=== PATIENT | female | born 1950 | race Caucasian/White ===

== ENCOUNTER 2016-06-23 18:19 | Emergency (ER) | payer MEDICARE ==
[~2016-06-23 18:19] MED LIST: BYSTOLIC10 MG PO; CARAFATE1 G; DILANTIN; HYDROCHLOROTH12.5 M1 PO; KEFLEX500 M1; KEPPRA750 M1; METOPROLOL SUC100 MG; NASONEX17 GM; NO MEDICATIONS; PREVACID PO; RANITIDINE HCL150 M1; VITAMIN D50000 UNIT PO
== END 2016-06-23 19:56 | disposition home or self-care (01) ==
LOC: SED 18:19
DX: S01.01XA Laceration without foreign body of scalp, initial encounter (principal); R56.9 Unspecified convulsions; I63.9 Cerebral infarction, unspecified; K21.9 Gastro-esophageal reflux disease without esophagitis; I10 Essential (primary) hypertension; Z88.1 Allergy status to other antibiotic agents; Z88.8 Allergy status to other drugs, medicaments and biological substances; Z88.6 Allergy status to analgesic agent; W18.2XXA Fall in (into) shower or empty bathtub, initial encounter; Y92.009 Unspecified place in unspecified non-institutional (private) residence as the place of occurrence of the external cause
CPT/HCPCS: 12001; 99283

== ENCOUNTER → 2016-07-03 | Outpatient (CLI) | payer MEDICARE ==
--- NOTE | ~2016-07-03 | CT71 ---
[facility] A Service of [facility] RADIOLOGY TEXT RESULTS PATIENT: TRACE SLAUGHTER LOCATION: [facility] : 50 UNIT #: [id number] AGE: [address]: John Blas MD SEX: F ORDER DR: [id number] [place] [id number] O MR#: [id number] Acc #: [id number] NAME: TRACE SLAUGHTER. : 1950 SEX: F STUDY DATE/TIME: 07/03/2016 14:03 UNIT: [facility] ROOM: STUDY DESCRIPTION: CT Head Wo Contrast Attending Physician: John Blas M.D. Referring Physician: John Blas M.D. Ordering Physician: John Blas M.D. Primary Care Physician: John Blas M.D. MEDICAL IMAGING REPORT This report is preliminary unless electronic signature is present. EXAM Head CT without contrast, date of study is 07/03/2016 PROCEDURE Axial unenhanced head CT. COMPARISON Brain MRI dated 09/13/2009 CLINICAL HISTORY Seizure disorder and weakness. Recent fall 10 days ago weakness since then. TECHNIQUE This CT exam was performed with one or more of the following radiation dose reduction techniques: automatic control, adjustment of mA and/or kV according to patient size, and iterative reconstruction. FINDINGS There has been previous left frontal craniotomy. There is no intracranial hemorrhage or mass or evidence of acute infarct, but there is left superior frontal encephalomalacia. Brain parenchymal density is otherwise normal. IMPRESSION Left superior frontal encephalomalacia, prior frontal craniotomy. No acute intracranial abnormality. Dictated by... Mark Contreras M.D. THIS IS AN ELECTRONICALLY VERIFIED REPORT [facility] A Service [facility] RADIOLOGY TEXT RESULTS PATIENT: TRACE SLAUGHTER LOCATION: [facility] : 50 UNIT #: [id number] AGE: [address]: John Blas MD SEX: F ORDER DR: Mark Contreras M.D. at 07/04/2016 12:46 PM TEV/gaby TD: 07/04/2016 00:32 JOB #: [id number] MEDICAL IMAGING REPORT
== END | disposition home or self-care (01) ==
LOC: SCT 13:52
DX: G40.909 Epilepsy, unspecified, not intractable, without status epilepticus (principal); R53.1 Weakness; G93.89 Other specified disorders of brain; Z98.890 Other specified postprocedural states
CPT/HCPCS: 70450

== ENCOUNTER 2016-07-17 14:11 | Emergency (ER) | payer MEDICARE ==
--- NOTE | ~2016-07-17 | CT71 ---
[facility] A Service [facility] RADIOLOGY TEXT RESULTS PATIENT: TRACE SLAUGHTER LOCATION: SED : 50 UNIT #: [id number] AGE: [address]: Edis Holguin MD SEX: F ORDER DR: [id number] [address] [address] [id number] E MR#: [id number] Acc #: [id number] NAME: TRACE SLAUGHTER : 1950 SEX: F STUDY DATE/TIME: 07/17/2016 13:56 UNIT: SED ROOM: STUDY DESCRIPTION: CT Head Wo Contrast Attending Physician: Edis Holguin M.D. Ordering Physician: Edis Holguin M.D. Primary Care Physician: John Blas M.D. MEDICAL IMAGING REPORT This report is preliminary unless electronic signature is present. EXAM Head CT without contrast HISTORY Head injury. Previous history of stroke. Last fall occurred 5 days ago. TECHNIQUE This CT exam was performed with one or more of the following radiation dose reduction techniques: automatic exposure control, adjustment of mA and/or kV according to patient size, and iterative reconstruction. Axial images were obtained without contrast and compared with 07/03/2016 FINDINGS Atrophy with left frontal encephalomalacia is again seen. There is no evidence of mass lesion, hemorrhage or edema. No midline shift is seen. Extraaxial structures are unremarkable. IMPRESSION Chronic left frontal infarct. Atrophy. No acute findings Dictated by... Richard Hernandez M.D. THIS IS AN ELECTRONICALLY VERIFIED REPORT Richard Hernandez M.D. at 07/21/2016 10:12 AM ADAN/thanh TD: 07/17/2016 21:04 JOB #: [id number] [facility] A [facility] RADIOLOGY TEXT RESULTS PATIENT: TRACE SLAUGHTER LOCATION: SED : 50 UNIT #: [id number] AGE: [address]: Edis Holguin MD SEX: F ORDER DR: MEDICAL IMAGING REPORT Page 1 of 1
--- NOTE | ~2016-07-17 | CT52 ---
[facility] A Service of [facility] RADIOLOGY TEXT RESULTS PATIENT: TRACE SLAUGHTER LOCATION: SED : 50 UNIT #: [id number] AGE: [address]: Edis Holguin MD SEX: F ORDER DR: [id number] [address] [address] [id number] E MR#: [id number] Acc #: [id number] NAME: TRACE SLAUGHTER : 1950 SEX: F STUDY DATE/TIME: 07/17/2016 14:26 UNIT: SED ROOM: STUDY DESCRIPTION: CT Cervical Spine Wo Cont Attending Physician: Edis Holguin M.D. Ordering Physician: Edis Holguin M.D. Primary Care Physician: John Blas M.D. MEDICAL IMAGING REPORT This report is preliminary unless electronic signature is present. EXAM CT cervical spine, 07/17/2016. HISTORY Fell and hit head. Complains of pain. Multiple falls. History of stroke, dysphasia. No memory loss. TECHNIQUE CT cervical spine performed. Bone and soft tissue windows reviewed. Sagittal and coronal reconstructions performed. This CT exam was performed with one or more of the following radiation dose reduction techniques: automatic exposure control, adjustment of mA and/or kV according to patient size, and iterative reconstruction. COMPARISON No prior CTs, cervical spine, for comparison. FINDINGS Visualized brain normal. Visualized paranasal sinuses and mastoid air cells clear. Nasopharyngeal, oropharyngeal regions notable only for right palatine tonsil tonsilolith. Pharyngeal mucosal, retroperitoneal spaces, larynx, subglottic airway, superior mediastinum, lung apices, thyroid, visualized submandibular and parotid glands unremarkable. There are small cervical lymph nodes. There is no indication of pathologic adenopathy. No traumatic-appearing abnormality in the paraspinal soft tissues. Straightening of the normal cervical lordosis. Vertebral body heights and facet joint relationships are normal. Diffuse moderate to marked narrowing of the cervical spine intervertebral disc spaces. No fracture. C2-C3: No significant disc bulge or herniation. Spinal canal diameter within normal limits. Neural foramina patent without evidence of exiting nerve impingement. STS. [facility] A Service of [facility] & [facility] RADIOLOGY TEXT RESULTS PATIENT: TRACE SLAUGHTER LOCATION: [facility] [place] [place] : 50 UNIT #: [id number] AGE: [address]: Edis Holguin MD SEX: F ORDER DR: C3-C4: There may be a small posterior disc bulge with some mild mass effect on the thecal sac. No cord contact. Minimal central spinal canal narrowing. Neural foramina patent without evidence of exiting nerve impingement. C4-C5: Posterior concentric disc osteophyte complex extending to the bilateral uncovertebral joints. Mild central spinal canal narrowing. Anterior cord contact with some cord effacement anteriorly. Mild to moderate foraminal narrowing bilaterally, due to uncovertebral degenerative changes. C5-C6: Small posterior central disc osteophyte complex. Probable anterior central cord contact. Mild central spinal canal narrowing. The neural foramina show mild narrowing on the right due to uncovertebral degenerative changes. C6-C7: Posterior concentric disc osteophyte complex. Narrowing of the anterior thecal space. No definite cord contact. The neural foramina are patent without evidence of exiting nerve impingement. C7-T1, T1-T2: No disc bulge or herniation. Spinal canal diameter normal. Neural foramina patent without evidence of exiting nerve impingement. IMPRESSION 1. No traumatic fracture or malalignment. Straightening of the normal cervical lordosis likely the normal alignment for this patient. 2. Multilevel degenerative change. See [id number] descriptions in body of report above. 3. No traumatic-appearing paraspinal soft tissue abnormality. Dictated by... Rafael Swanson M.D. THIS IS AN ELECTRONICALLY VERIFIED REPORT Rafael Swanson M.D. at 07/18/2016 1:54 PM BOBBY/karen TD: 07/17/2016 17:13 JOB #: [id number] MEDICAL IMAGING REPORT Page 1 of 1
== END 2016-07-17 16:38 | disposition home or self-care (01) ==
LOC: SED 14:11
DX: S09.90XA Unspecified injury of head, initial encounter (principal); I10 Essential (primary) hypertension; Z98.890 Other specified postprocedural states; Z87.891 Personal history of nicotine dependence; Z88.1 Allergy status to other antibiotic agents; Z88.6 Allergy status to analgesic agent; Z79.899 Other long term (current) drug therapy; W18.00XA Striking against unspecified object with subsequent fall, initial encounter; Y92.009 Unspecified place in unspecified non-institutional (private) residence as the place of occurrence of the external cause
CPT/HCPCS: 70450; 72125; 99284